=== PATIENT | male | born 1990 | race Caucasian/White ===

== ENCOUNTER 2018-10-03 02:25 | Emergency (ER) | payer OTHER ==
[~2018-10-03] VITALS: Ht 172.7 cm; Wt 68.2 kg
[2018-10-03 02:30] VITALS: TEMP 97.8
[2018-10-03 05:52] VITALS: BP 101/58; PULSE 84
== END 2018-10-03 05:50 | disposition home or self-care (01) ==
LOC: COL.ER 02:25 → EDBD 02:26 → COL.ER 05:50
DX: S01.81XA Laceration without foreign body of other part of head, initial encounter (principal); F10.129 Alcohol abuse with intoxication, unspecified; Y90.6 Blood alcohol level of 120-199 mg/100 ml; Y09 Assault by unspecified means; Y92.511 Restaurant or cafe as the place of occurrence of the external cause
CPT/HCPCS: J2765; J7030